=== PATIENT | male | born 1960 | race Caucasian/White ===

== ENCOUNTER 2020-07-17 00:27 | Inpatient (IN) ==
[2020-07-17] MEDS ORDERED: hydrALAZINE 20 MG/1 ML VIAL IV PRN (03:37)
[2020-07-17] MEDS ORDERED: LORazepam 2 MG/1 ML VIAL ONE (03:37)
[2020-07-17] MEDS ORDERED: NICOTINE 21 MG/24 HR PATCH TRANSDERM PRN (03:37)
[2020-07-17] MEDS ORDERED: diphenhydrAMINE CAP 25 MG CAPSULE PO PRN (03:37)
[2020-07-17] MEDS ORDERED: hydrALAZINE 20 MG/1 ML VIAL ONE (03:37)
[2020-07-17] MEDS ORDERED: ALBUTEROL 2.5 MG/3 ML NEB RESP TX PRN (03:37)
[2020-07-17] MEDS ORDERED: ONDANSETRON 4 MG/2 ML VIAL IV PRN (03:37)
[2020-07-17] MEDS ORDERED: FUROSEMIDE 40 MG/4 ML VIAL ONE (03:38)
[2020-07-17] MEDS ORDERED: LORazepam 2 MG/1 ML VIAL IV ONE ×2 (03:39→04:00)
[2020-07-17] MEDS ORDERED: hydrALAZINE 20 MG/1 ML VIAL IV ONE (03:39)
[2020-07-17] MEDS ORDERED: FUROSEMIDE 40 MG/4 ML VIAL IV ONE ×2 (03:39→10:11)
[2020-07-17] MEDS ORDERED: KETOROLAC 30 MG/1 ML VIAL IV ONE (03:42)
[2020-07-17] MEDS ORDERED: methylPREDNISolone SOD SUC 40 MG/1 ML VIAL IV ONE (03:45)
[2020-07-17] MEDS ORDERED: methylPREDNISolone SOD SUC 125 MG/2 ML VIAL ONE (03:47)
[2020-07-17] MEDS ORDERED: ENOXAPARIN 150 MG/ML SYRINGE SUBCUT SCH (04:00)
[2020-07-17 04:26] LABS: Basophils # 0.1 10*3/uL (0.0-0.2); Basophils % 0.3 % (0.0-0.8); Hematocrit 45.7 VOL% (42.0-52.0); Hemoglobin 14.9 GM/DL (14.0-18.0); Immature Granulocytes % 1.2 %; Immature Granulocytes Absolute 0.26 #; Lymphocytes # 1.6 10*3/uL (1.4-4.0); Lymphocytes % 7.2 % (21.2-54.2); Mean Corpuscular HGB Conc 32.6 GM/DL (32-36); Mean Platelet Volume 9.7 FL (9.6-12.0); Monocytes % 7.3 % (1.7-12.7); Platelet Count 435 T/CUMM (130-400); Red Blood Count 5.44 MC/CUMM (3.8-5.5); Red Cell Distribution Width 15.5 % (9.3-17.3); White Blood Count 22.4 T/CUMM (4-12)
[2020-07-17 04:43] LABS: Ferritin 72.7 ng/ml (26-388)
[2020-07-17 04:44] LABS: Lymphocytes 8 % (20-55); Platelet Estimate Adequate; Segmented Neutrophils 82 % (50-85); Total Cells Counted 100
[2020-07-17 05:16] LABS: Albumin 3.4 G/DL (3.4-5.0); Bilirubin,Total 1.2 MG/DL (0.2-1.0); Calcium 8.9 MG/DL (8.5-10.1); Osmolality,Calculated 276.1 MOS/KG (273-304); Potassium 3.8 MMOL/L (3.5-5.1); Total Protein 8.8 G/DL (5.0-7.5)
[2020-07-17 05:17] LABS: Risk Ratio 2.65; VLDL CHOLESTEROL 28.8 MG/DL
[2020-07-17 05:44] LABS: ABG Base Excess 1.7 MMOL/L (-2.5-2.5); ABG PCO2 52.9 MM HG (35-48); ABG PH 7.343 (7.35-7.45); ABG TCO2 24.9 MMOL/L (23-27)
[2020-07-17] MEDS: AZITHROMYCIN INJ 500 MG in SODIUM CHLORIDE 0.9% 250 ML IV SCH (06:06)
[2020-07-17] MEDS ORDERED: ALBUTEROL/IPRATROPIUM 3 ML NEB RESP TX PRN (07:17)
[2020-07-17] MEDS ORDERED: MAGNESIUM SULF RIDER 2 GM in PREMIX 1 EACH IV ONE (07:18)
[2020-07-17] MEDS ORDERED: POTASSIUM CHLORIDE 20 MEQ/15 ML UDCUP PER TUBE PRN (07:24)
[2020-07-17] MEDS ORDERED: MAGNESIUM SULF RIDER 2 GM in PREMIX 1 EACH IV PRN (07:25)
[2020-07-17] MEDS ORDERED: POTASSIUM CHLORIDE 20 MEQ TABLET PO ONE (07:41)
[2020-07-17] MEDS: methylPREDNISolone SOD SUC 40 MG/1 ML VIAL IV SCH ×2 (09:10→17:21)
[2020-07-17] MEDS: ENOXAPARIN 40 MG/0.4 ML SYRINGE SUBCUT SCH (09:10)
[2020-07-17] MEDS: ASPIRIN EC 81 MG TABLET PO SCH (09:18)
[2020-07-17] MEDS: FAMOTIDINE 20 MG TABLET PO SCH (09:18)
[2020-07-17] MEDS: amLODIPine 10 MG TABLET PO SCH (09:18)
[2020-07-17] MEDS: cloNIDine 0.1 MG TABLET PO SCH ×3 (09:18→20:05)
[2020-07-17] MEDS: NICOTINE 21 MG/24 HR PATCH TRANSDERM SCH (09:19)
[2020-07-17] MEDS: carvediloL 6.25 MG TABLET PO SCH ×2 (09:19→20:05)
[2020-07-17 11:46] LABS: Barbiturates Screen,Urine Negative (Negative); Benzodiazepines Screen,Urine Negative (Negative); Cannabinoid Screen,Urine Positive (Negative); Opiate Screen,Urine Positive (Negative); Phencyclidine Screen,Urine Negative (Negative)
[2020-07-17 11:52] LABS: Bacteria,Urine Occasional /HPF (Few); Bilirubin,Urine Negative (Negative); Blood, Urine Negative (Negative); Glucose,Urine (UA) Negative (Negative); Hyaline Casts,Urine 6 /LPF (0-3); Ketones,Urine Negative (Negative); Mucus,Urine Occasional /LPF (Occasional); Nitrite,Urine Negative (Negative); Protein,Urine Negative; RBC,Urine <1 /HPF (0-4); Urine Appearance CLEAR (Clear); Urine Color Yellow (Yellow); Urine Specific Gravity 1.019 (1.001-1.035); Urine Urobilinogen < 2.0 EU/DL (0.2-1.0); WBC,Urine 1 /HPF (0-6)
[2020-07-17] MEDS: MORPHINE 4 MG/1 ML VIAL IV PRN ×2 (16:35→17:21)
[2020-07-17] MEDS: guaiFENesin/DM ER 600-30 MG TABLET PO PRN (17:21)
[2020-07-17] MEDS: cefTRIAXone 1,000 MG in SYRINGE 1 EACH IV SCH (20:04)
[2020-07-18] MEDS: methylPREDNISolone SOD SUC 40 MG/1 ML VIAL IV SCH ×5 (00:40→22:40)
[2020-07-18 05:42] LABS: Basophils % 0.1 % (0.0-0.8); Hematocrit 41.3 VOL% (42.0-52.0); Hemoglobin 12.9 GM/DL (14.0-18.0); Immature Granulocytes % 0.8 %; Immature Granulocytes Absolute 0.18 #; Lymphocytes # 0.9 10*3/uL (1.4-4.0); Lymphocytes % 3.9 % (21.2-54.2); Mean Corpuscular HGB Conc 31.2 GM/DL (32-36); Mean Corpuscular Volume 86.6 FL (87-102); Mean Platelet Volume 9.6 FL (9.6-12.0); Monocytes % 3.6 % (1.7-12.7); Neutrophils % 91.6 % (38.7-73.9); Platelet Count 348 T/CUMM (130-400); Red Blood Count 4.77 MC/CUMM (3.8-5.5); Red Cell Distribution Width 15.3 % (9.3-17.3); White Blood Count 23.3 T/CUMM (4-12)
[2020-07-18 06:04] LABS: Band Neutrophils 3 % (0-10); Lymphocytes 6 % (20-55); Myelocytes 1 %; Segmented Neutrophils 85 % (50-85); Total Cells Counted 100
[2020-07-18 06:05] LABS: Hypochromasia 1+; Microcytosis 1+; Platelet Estimate Normal
[2020-07-18 06:10] LABS: Osmolality,Calculated 284.1 MOS/KG (273-304); Potassium 3.7 MMOL/L (3.5-5.1)
[2020-07-18] MEDS: AZITHROMYCIN INJ 500 MG in SODIUM CHLORIDE 0.9% 250 ML IV SCH (06:29)
[2020-07-18] MEDS: ASPIRIN EC 81 MG TABLET PO SCH (08:11)
[2020-07-18] MEDS: FAMOTIDINE 20 MG TABLET PO SCH (08:11)
[2020-07-18] MEDS: cloNIDine 0.1 MG TABLET PO SCH ×3 (08:11→20:40)
[2020-07-18] MEDS: NICOTINE 21 MG/24 HR PATCH TRANSDERM SCH (08:11)
[2020-07-18] MEDS: carvediloL 6.25 MG TABLET PO SCH ×2 (08:11→20:40)
[2020-07-18] MEDS: FUROSEMIDE 40 MG/4 ML VIAL IV SCH (08:11)
[2020-07-18] MEDS: ENOXAPARIN 40 MG/0.4 ML SYRINGE SUBCUT SCH (08:12)
[2020-07-18] MEDS: amLODIPine 10 MG TABLET PO SCH (08:13)
[2020-07-18] MEDS: guaiFENesin/DM ER 600-30 MG TABLET PO PRN (08:21)
[2020-07-18] MEDS: ACETAMINOPHEN 325 MG TABLET PO PRN (18:37)
[2020-07-18] MEDS: cefTRIAXone 1,000 MG in SYRINGE 1 EACH IV SCH (20:40)
[2020-07-19 04:08] LABS: Hematocrit 40.3 VOL% (42.0-52.0); Hemoglobin 12.6 GM/DL (14.0-18.0); Immature Granulocytes % 0.7 %; Immature Granulocytes Absolute 0.17 #; Lymphocytes # 0.7 10*3/uL (1.4-4.0); Lymphocytes % 2.9 % (21.2-54.2); Mean Corpuscular HGB Conc 31.3 GM/DL (32-36); Mean Corpuscular Volume 86.7 FL (87-102); Mean Platelet Volume 9.5 FL (9.6-12.0); Monocytes % 3.2 % (1.7-12.7); Neutrophils % 93.2 % (38.7-73.9); Platelet Count 344 T/CUMM (130-400); Red Blood Count 4.65 MC/CUMM (3.8-5.5); Red Cell Distribution Width 15.2 % (9.3-17.3); White Blood Count 23.7 T/CUMM (4-12)
[2020-07-19 04:26] LABS: Calcium 8.9 MG/DL (8.5-10.1); Osmolality,Calculated 291.8 MOS/KG (273-304)
[2020-07-19 04:27] LABS: Alanine Aminotransferase 76 U/L (16-61); Albumin 2.3 G/DL (3.4-5.0); Alkaline Phosphatase 72 U/L (45-117); Aspartate Amino Transferase 41 U/L (0-37); Bilirubin,Total < 0.39 MG/DL (0.2-1.0); Blood Urea Nitrogen 53 MG/DL (7-18); Calcium 8.7 MG/DL (8.5-10.1); Carbon Dioxide 32 MMOL/L (21-32); Estimated Glom Filtration Rate 78 ML/MIN; Glucose 146 MG/DL (74-106); Osmolality,Calculated 289.8 MOS/KG (273-304); Sodium 137 MMOL/L (136-145); Total Protein 7.1 G/DL (5.0-7.5)
[2020-07-19 05:24] LABS: Hypochromasia 1+; Lymphocytes 1 % (20-55); Segmented Neutrophils 95 % (50-85); Total Cells Counted 100
[2020-07-19 05:25] LABS: Microcytosis 1+; Platelet Estimate Normal
[2020-07-19] MEDS: AZITHROMYCIN INJ 500 MG in SODIUM CHLORIDE 0.9% 250 ML IV SCH (06:18)
[2020-07-19] MEDS: NICOTINE 21 MG/24 HR PATCH TRANSDERM SCH (08:45)
[2020-07-19] MEDS: amLODIPine 10 MG TABLET PO SCH (08:45)
[2020-07-19] MEDS: ENOXAPARIN 40 MG/0.4 ML SYRINGE SUBCUT SCH (08:45)
[2020-07-19] MEDS: carvediloL 6.25 MG TABLET PO SCH ×2 (08:45→21:33)
[2020-07-19] MEDS: cloNIDine 0.1 MG TABLET PO SCH ×3 (08:45→21:33)
[2020-07-19] MEDS: FUROSEMIDE 40 MG/4 ML VIAL IV SCH (08:45)
[2020-07-19] MEDS: ASPIRIN EC 81 MG TABLET PO SCH (08:45)
[2020-07-19] MEDS: FAMOTIDINE 20 MG TABLET PO SCH (08:45)
[2020-07-19] MEDS: methylPREDNISolone SOD SUC 40 MG/1 ML VIAL IV SCH ×2 (09:50→21:33)
[2020-07-19] MEDS: ACETAMINOPHEN 325 MG TABLET PO PRN ×3 (10:45→21:32)
[2020-07-19] MEDS: cefTRIAXone 1,000 MG in SYRINGE 1 EACH IV SCH (21:45)
[2020-07-20 03:30] LABS: Basophils % 0.2 % (0.0-0.8); Hematocrit 38.9 VOL% (42.0-52.0); Hemoglobin 12.1 GM/DL (14.0-18.0); Immature Granulocytes % 0.7 %; Immature Granulocytes Absolute 0.12 #; Lymphocytes # 0.7 10*3/uL (1.4-4.0); Lymphocytes % 3.8 % (21.2-54.2); Mean Corpuscular HGB Conc 31.1 GM/DL (32-36); Mean Corpuscular Volume 86.3 FL (87-102); Mean Platelet Volume 9.8 FL (9.6-12.0); Monocytes % 4.6 % (1.7-12.7); Neutrophils % 90.7 % (38.7-73.9); Platelet Count 333 T/CUMM (130-400); Red Blood Count 4.51 MC/CUMM (3.8-5.5); Red Cell Distribution Width 15.5 % (9.3-17.3); White Blood Count 18.4 T/CUMM (4-12)
[2020-07-20 03:55] LABS: Albumin 2.3 G/DL (3.4-5.0); Bilirubin,Total 0.5 MG/DL (0.2-1.0); Calcium 8.5 MG/DL (8.5-10.1); Osmolality,Calculated 290.4 MOS/KG (273-304); Potassium 4.3 MMOL/L (3.5-5.1); Total Protein 6.5 G/DL (5.0-7.5)
[2020-07-20 03:58] LABS: Lymphocytes 5 % (20-55); Platelet Estimate Normal; Segmented Neutrophils 93 % (50-85); Total Cells Counted 100
[2020-07-20] MEDS: AZITHROMYCIN INJ 500 MG in SODIUM CHLORIDE 0.9% 250 ML IV SCH (05:45)
[2020-07-20] MEDS: FUROSEMIDE 40 MG/4 ML VIAL IV SCH (09:13)
[2020-07-20] MEDS: methylPREDNISolone SOD SUC 40 MG/1 ML VIAL IV SCH ×2 (09:13→21:50)
[2020-07-20] MEDS: cloNIDine 0.1 MG TABLET PO SCH ×3 (09:14→21:50)
[2020-07-20] MEDS: ASPIRIN EC 81 MG TABLET PO SCH (09:14)
[2020-07-20] MEDS: FAMOTIDINE 20 MG TABLET PO SCH (09:14)
[2020-07-20] MEDS: carvediloL 6.25 MG TABLET PO SCH ×2 (09:14→21:50)
[2020-07-20] MEDS: amLODIPine 10 MG TABLET PO SCH (09:14)
[2020-07-20] MEDS: ENOXAPARIN 40 MG/0.4 ML SYRINGE SUBCUT SCH (09:14)
[2020-07-20] MEDS: NICOTINE 21 MG/24 HR PATCH TRANSDERM SCH (09:50)
[2020-07-20] MEDS: cefTRIAXone 1,000 MG in SYRINGE 1 EACH IV SCH (21:50)
[2020-07-21 05:48] LABS: Basophils % 0.2 % (0.0-0.8); Hematocrit 39.3 VOL% (42.0-52.0); Hemoglobin 12.4 GM/DL (14.0-18.0); Immature Granulocytes % 1.2 %; Immature Granulocytes Absolute 0.15 #; Lymphocytes # 0.9 10*3/uL (1.4-4.0); Lymphocytes % 7.1 % (21.2-54.2); Mean Corpuscular HGB Conc 31.6 GM/DL (32-36); Mean Corpuscular Volume 86.6 FL (87-102); Mean Platelet Volume 9.6 FL (9.6-12.0); Monocytes % 7.3 % (1.7-12.7); Neutrophils % 84.2 % (38.7-73.9); Platelet Count 338 T/CUMM (130-400); Red Blood Count 4.54 MC/CUMM (3.8-5.5); Red Cell Distribution Width 15.4 % (9.3-17.3); White Blood Count 12.6 T/CUMM (4-12)
[2020-07-21 06:06] LABS: Albumin 2.3 G/DL (3.4-5.0); Bilirubin,Total 0.7 MG/DL (0.2-1.0); Calcium 8.6 MG/DL (8.5-10.1); Osmolality,Calculated 283.5 MOS/KG (273-304); Potassium 4.2 MMOL/L (3.5-5.1); Total Protein 6.9 G/DL (5.0-7.5)
[2020-07-21] MEDS: AZITHROMYCIN INJ 500 MG in SODIUM CHLORIDE 0.9% 250 ML IV SCH (06:52)
[2020-07-21] MEDS: methylPREDNISolone SOD SUC 40 MG/1 ML VIAL IV SCH ×2 (09:12→21:51)
[2020-07-21] MEDS: FUROSEMIDE 40 MG/4 ML VIAL IV SCH (09:12)
[2020-07-21] MEDS: NICOTINE 21 MG/24 HR PATCH TRANSDERM SCH (09:12)
[2020-07-21] MEDS: carvediloL 6.25 MG TABLET PO SCH ×2 (09:13→21:50)
[2020-07-21] MEDS: amLODIPine 10 MG TABLET PO SCH (09:13)
[2020-07-21] MEDS: cloNIDine 0.1 MG TABLET PO SCH ×3 (09:13→21:50)
[2020-07-21] MEDS: ENOXAPARIN 40 MG/0.4 ML SYRINGE SUBCUT SCH (09:13)
[2020-07-21] MEDS: ACETAMINOPHEN 325 MG TABLET PO PRN (09:13)
[2020-07-21] MEDS: guaiFENesin/DM ER 600-30 MG TABLET PO PRN (09:14)
[2020-07-21] MEDS: ASPIRIN EC 81 MG TABLET PO SCH (09:14)
[2020-07-21] MEDS: FAMOTIDINE 20 MG TABLET PO SCH (09:16)
[2020-07-21] MEDS: ALBUTEROL/IPRATROPIUM 3 ML NEB RESP TX SCH ×2 (14:18→19:26)
[2020-07-21] MEDS: cefTRIAXone 1,000 MG in SYRINGE 1 EACH IV SCH (21:50)
[2020-07-22] MEDS: ALBUTEROL/IPRATROPIUM 3 ML NEB RESP TX SCH ×4 (01:15→19:15)
[2020-07-22] MEDS: carvediloL 6.25 MG TABLET PO SCH ×2 (09:38→20:05)
[2020-07-22] MEDS: cloNIDine 0.1 MG TABLET PO SCH ×3 (09:38→20:05)
[2020-07-22] MEDS: amLODIPine 10 MG TABLET PO SCH (09:38)
[2020-07-22] MEDS: FAMOTIDINE 20 MG TABLET PO SCH (09:39)
[2020-07-22] MEDS: ENOXAPARIN 40 MG/0.4 ML SYRINGE SUBCUT SCH (09:39)
[2020-07-22] MEDS: ASPIRIN EC 81 MG TABLET PO SCH (09:39)
[2020-07-22] MEDS: FUROSEMIDE 40 MG/4 ML VIAL IV SCH (09:41)
[2020-07-22] MEDS: methylPREDNISolone SOD SUC 40 MG/1 ML VIAL IV SCH ×2 (09:42→20:05)
[2020-07-22] MEDS: NICOTINE 21 MG/24 HR PATCH TRANSDERM SCH (12:11)
[2020-07-22] MEDS: ACETAMINOPHEN 325 MG TABLET PO PRN (16:45)
[2020-07-22] MEDS: cefTRIAXone 1,000 MG in SYRINGE 1 EACH IV SCH (20:06)
[2020-07-23] MEDS: ALBUTEROL/IPRATROPIUM 3 ML NEB RESP TX SCH ×2 (00:19→07:40)
[2020-07-23] MEDS: ACETAMINOPHEN 325 MG TABLET PO PRN (07:36)
[2020-07-23] MEDS ORDERED: LOSARTAN 50 MG TABLET PO SCH (09:00)
[2020-07-23] MEDS: amLODIPine 10 MG TABLET PO SCH (09:41)
[2020-07-23] MEDS: cloNIDine 0.1 MG TABLET PO SCH (09:41)
[2020-07-23] MEDS: FAMOTIDINE 20 MG TABLET PO SCH (09:42)
[2020-07-23] MEDS: FUROSEMIDE 40 MG/4 ML VIAL IV SCH (09:42)
[2020-07-23] MEDS: ASPIRIN EC 81 MG TABLET PO SCH (09:42)
[2020-07-23] MEDS: ENOXAPARIN 40 MG/0.4 ML SYRINGE SUBCUT SCH (09:42)
[2020-07-23] MEDS: carvediloL 6.25 MG TABLET PO SCH (09:42)
[2020-07-23] MEDS: methylPREDNISolone SOD SUC 40 MG/1 ML VIAL IV SCH (09:43)
[2020-07-23] MEDS: NICOTINE 21 MG/24 HR PATCH TRANSDERM SCH (09:47)
[2020-07-23] MEDS: guaiFENesin/DM ER 600-30 MG TABLET PO PRN (09:47)
[2020-07-23 12:17] VITALS: BP 139/73
== END 2020-07-23 14:20 | disposition home or self-care (01) | DRG 291 ==
LOC: N.ICU 03:27 → SUATTDRO 03:27 → N.5E 07-19 13:40
PROVIDERS: ADMIT Internal Medicine; ATTEND Internal Medicine